=== PATIENT | female | born 1990 | race Caucasian/White ===

== ENCOUNTER 2020-07-10 14:00 | Observation (INO) | payer OTHER ==
[~2020-07-10] VITALS: Ht 162.6 cm; Wt 69.8 kg
[2020-07-10 16:02] LABS: HEMOGLOBIN 10.1 g/dl (12.5-16.0); MEAN CELL VOLUME 85 fl (80.0-100.0); MEAN CORPUSCULAR HEMOGLOBIN 27 pg (27.0-31.0); MEAN CORPUSCULAR HGB CONC 32 g/dl (33.0-37.0); PLATELET COUNT 350 K/mm3 (130-400); REDCELL DISTRIBUTION WIDTH-CV 13.2 % (11.5-14.5)
[2020-07-10 16:05] LABS: HEMATOCRIT 31.4 % (37.0-47.0)
[2020-07-10 16:26] LABS: ALBUMIN 3.8 gm/dL (3.5-5.0); BILIRUBIN,TOTAL 0.6 mg/dL (0.0-1.0); CALCIUM 8.8 mg/dL (8.4-10.2); CREATININE, serum 0.62 (0.52-1.25); POTASSIUM 3.8 mmol/L (3.4-5.0); TOTAL PROTEIN 7.8 gm/dL (6.4-8.2)
[2020-07-10 17:08] LABS: EOSINOPHIL 1 % (0-4); LYMPHOCYTE 20 % (20.0-51.0); NEUTROPHILS 71 % (42.0-75.2)
[2020-07-10 17:10] LABS: HYPOCHROMIA 1+; PLATELET ESTIMATE NORMAL (NORMAL)
[2020-07-10] MEDS ORDERED: TRI-LO-ESTARYL1 EACH (18:47)
[2020-07-10 20:32] LABS: INR 1.8 (0.8-3.0); PROTHROMBIN TIME 19.9 SECONDS (9.7-12.8)
--- NOTE | 2020-07-10 22:00 | NUR ---
Arrived to surgical floor. Assessment complete. Lungs clear. Heart sounds normal. Bowels active x4. Pusles present throughout. Left lower extremity +3 edema, right lower +2. No redness at this time. Reports pain in lower extremities with palpation. IV left AC without complications. Orientated patient to surgical floor. All questions answered. Updated on plan of care. Call light in reach.
[2020-07-10 22:39] VITALS: BP 130/75; PULSE 118; TEMP 98.6
--- NOTE | 2020-07-11 03:34 | NUR ---
Reports 5/10 pain in legs. Given PRN norco. Denies other needs at this time. Call light in reach.
[2020-07-11 04:00] VITALS: BP 90/51; PULSE 91; TEMP 98.2
--- NOTE | 2020-07-11 05:17 | NUR ---
Patient required norco for pain control in legs during night. Otherwise uneventful night. Resting in bed this AM. Call light in reach.
[2020-07-11 05:50] VITALS: BP 93/52
[2020-07-11 06:14] VITALS: BP 108/56; PULSE 98; TEMP 98.2
[2020-07-11 06:42] LABS: BASO % 0.3 % (0.0-2.0); EOS # 0.1 (0.0-0.7); EOS % 0.7 % (0-4.0); GRAN # 7.8 (1.4-6.5); GRAN % 67.2 % (42.2-75.2); LYMPH # 2.1 (1.2-3.4); LYMPH % 18.1 % (20.0-51.0); MEAN CELL VOLUME 88 fl (80.0-100.0); MEAN CORPUSCULAR HGB CONC 31 g/dl (33.0-37.0); MEAN PLATELET VOLUME 9.9 fl (7.4-10.4); MONO # 1.5 (0.1-0.6); MONO % 12.7 % (1.7-9.3); PLATELET COUNT 334 K/mm3 (130-400); RED BLOOD COUNT 3.21 M/mm3 (4.10-5.30); REDCELL DISTRIBUTION WIDTH-CV 13.4 % (11.5-14.5)
[2020-07-11 06:48] LABS: HEMATOCRIT 28.1 % (37.0-47.0); HEMOGLOBIN 8.8 g/dl (12.5-16.0); MEAN CORPUSCULAR HEMOGLOBIN 27 pg (27.0-31.0)
--- NOTE | 2020-07-11 06:49 | NUR ---
Report given DONA Maldonado
[2020-07-11 06:55] LABS: ALBUMIN 2.9 gm/dL (3.5-5.0); BILIRUBIN,TOTAL 0.3 mg/dL (0.0-1.0); CREATININE, serum 0.59 (0.52-1.25); POTASSIUM 3.7 mmol/L (3.4-5.0); TOTAL PROTEIN 6.6 gm/dL (6.4-8.2)
--- NOTE | 2020-07-11 07:45 | NUR ---
CARDIOLOGY ROUNDING. VERBAL ORDER TO GIVE ELIQUIS AND KEEP NPO FOR IVC FILTER. CARDS TALKED WITH PATIENT AND [id number] WHO IS ALSO A TICKET MARKER ABOUT TRANSFERING TO .
--- NOTE | 2020-07-11 08:41 | NUR ---
Medication held by primary nurse to await for provider approval. Provider approved obtained, medication administered. Franca Callaway RN Student
--- NOTE | 2020-07-11 09:00 | NUR ---
HOSPITALIST TEAM ROUNDING. PATIENT DOES NOT WANT TO TRANSFER TO AT THIS TIME. PLAN IS TO DISCHARGE HOME ON ELIQUIS. PATIENT WILL F/U OUTPATIENT WITH CARDIOLOGY FOR IVC FILTER
[2020-07-11] MEDS ORDERED: ELIQUIS 5MG PO (09:59)
[2020-07-11] MEDS ORDERED: NORCO 325 MG-51 TAB PO (10:00)
--- NOTE | 2020-07-11 10:20 | NUR ---
PATIENT ON PHONE WITH [id number] WHO IS A PROFESSOR IN FAMILY STUDIES, NOW PATIENT WANTS TO TRANSFER TO . HEALTH PROMOTION EDUCATOR AND CASE MANAGEMENT INVOLVED.
--- NOTE | 2020-07-11 10:55 | NUR ---
First visit from the seed cutter. No needs right now.
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
--- NOTE | 2020-07-11 13:58 | NUR ---
End of shift report provided to primary nurse. No concerns.
--- NOTE | 2020-07-11 14:01 | NUR ---
Primary nurse was assisted [phone] patient care by [facility] student Wendy Callaway and [employer] instructor Namita Lazo RN-BC.
--- NOTE | 2020-07-11 16:30 | NUR ---
[facility] DENIED TRANSFER. CARDIOLOGY AND HOSPITALIST NOTIFIED. PATIENT NOW TO RECEIVE OUTPATIENT IVC FILTER WEDNESDAY. SEE DISCHARGE ORDERS. PATIENT'S DIET CHANGED
--- NOTE | 2020-07-11 17:15 | NUR ---
Ballistic Technician met with patient to discuss discharge planning as she is being discharged home this afternoon and will have an IVC filter placed as an outpatient. Patient was declined by [facility] for transfer. Patient lives in [place] and does not have primary care set up at this time, but states she is working to get this accomplished. SW discussed options with patient including PCP's that are accepting new patients. Patient uses [facility] on [address] and states she called them this afternoon to update her insurance card with them. Patient will discharge on Eloquis and patient states she was given a $10 co pay card. Patient states without the co-pay card, the month supply was about $100 with her insurance, which she can afford. Patient states her aunt will be staying with her for the time being to provide additional support and has obtained a wheelchair and walker for her. Patient inquired about other DME recommendations. SW advised she could not recommend DME but advised things like shower chairs, bedside commodes, etc could be found locally at placed like [facility] and [facility]. KAILEY collaborated the above information to DONA Maldonado.
[2020-07-11 17:25] VITALS: BP 115/68; PULSE 104; TEMP 98.2
--- NOTE | 2020-07-11 18:55 | NUR ---
PATIENT DISCHARGING HOME VIA WC TO PERSONAL VEHICLE WHERE FAMILY IS WAITING. GAVE DISCHARGE INSTRUCTIONS, E-SCRIPTS PICKED UP BY FAMILY, AND DISCUSSED F/U APTS. ANSWERED ALL QUESTIONS/CONCERNS. DC'D LEFT AC IV, COVERED SITE WITH DEMETRIOE & COBAN. DC'D TELE. PATIENT ASSISTED TO COMMODE AND TO GET DRESSED FOR DISCHARGE. ESCORTED OUT.
== END 2020-07-11 18:55 | disposition home or self-care (01) ==
LOC: COL.ER 14:00 → JCC 17:57
PROVIDERS: Family Medicine; Student in an Organized Health Care Education/Training Program; ADMIT Hospitalist
DX: I82.403 Acute embolism and thrombosis of unspecified deep veins of lower extremity, bilateral (principal); D72.829 Elevated white blood cell count, unspecified; E87.1 Hypo-osmolality and hyponatremia; D64.9 Anemia, unspecified; Z20.828 Contact with and (suspected) exposure to other viral communicable diseases; Z79.01 Long term (current) use of anticoagulants; Z85.828 Personal history of other malignant neoplasm of skin
CPT/HCPCS: 99223-AI; 99239; J7030; Q9967